=== PATIENT | female | born 1950 | race Caucasian/White ===

== ENCOUNTER → 2016-11-06 | Outpatient (CLI) | payer BC ==
[~2016-11-06] MED LIST: CLARITIN10 MG PO; MICARDIS HCT 121 TA1 PO
== END ==
LOC: MAMMO 09:51
DX: Z12.31 Encounter for screening mammogram for malignant neoplasm of breast (principal)
CPT/HCPCS: G0202

== ENCOUNTER → 2017-03-18 | Outpatient (CLI) | payer BC ==
[2011-11-05 22:11] VITALS: BP 102/66
== END ==
LOC: RAD 03-16 11:21
DX: M25.562 Pain in left knee (principal); S83.242A Other tear of medial meniscus, current injury, left knee, initial encounter; M17.12 Unilateral primary osteoarthritis, left knee; S83.512A Sprain of anterior cruciate ligament of left knee, initial encounter; M25.462 Effusion, left knee; M85.462 Solitary bone cyst, left tibia and fibula

== ENCOUNTER 2017-07-15 08:00 | Outpatient (RCR) | payer MEDICARE, BC ==
[2011-11-05 22:11] VITALS: BP 102/66
== END 2017-07-15 11:22 | disposition home or self-care (01) ==
LOC: PT 08:00
DX: Z47.89 Encounter for other orthopedic aftercare (principal)
CPT/HCPCS: G8978-GP; G8979-GP

== ENCOUNTER → 2017-11-11 | Outpatient (CLI) | payer MEDICARE, MEDICAID ==
[2011-11-05 22:11] VITALS: BP 102/66
== END ==
LOC: MAMMO 08:30
DX: Z12.31 Encounter for screening mammogram for malignant neoplasm of breast (principal)

== ENCOUNTER 2018-02-01 08:00 | Outpatient (RCR) | payer MEDICARE, MEDICAID ==
[2011-11-05 22:11] VITALS: BP 102/66
== END 2018-02-10 | disposition home or self-care (01) ==
LOC: PT
DX: Z47.89 Encounter for other orthopedic aftercare (principal); M25.562 Pain in left knee
CPT/HCPCS: G8978-GP; G8979-GP

== ENCOUNTER 2018-09-29 15:41 | Emergency (ER) | payer MEDICARE, MEDICAID ==
[~2018-09-29] VITALS: Ht 157.5 cm; Wt 80.0 kg
[2018-09-29] MEDS ORDERED: SIMVASTATIN40 M1 PO (15:56)
[2018-09-29] MEDS ORDERED: HYDROCHLOROTHIA1 T15 PO (15:56)
[2018-09-29] MEDS ORDERED: MEDI-FIRST ASP325 MG PO (15:57)
[2018-09-29 16:56] LABS: EOS # 0.3 (0.04-0.40); EOS % 3.8 % (1.0-5.0); HEMATOCRIT 41.7 % (37.0-47.0); HEMOGLOBIN 14.2 g/dL (12.5-16.0); LYMPH# 2.3 (1.50-4.00); MEAN CELL VOLUME 94 fl (78-100); MEAN CORPUSCULAR HEMOGLOBIN 32 pg (27-31); MEAN CORPUSCULAR HGB CONC 34 g/dL (33-37); MEAN PLATELET VOLUME 8.9 fl (7.4-10.4); MONO # 0.8 (0.20-0.80); NEU # 5.4 (1.40-6.50); PLATELET COUNT 471 K/mm3 (130-400); RED BLOOD COUNT 4.44 M/mm3 (4.10-5.30); RED CELL DISTRIBUTION WIDTH 13.1 % (11.5-14.5); WHITE BLOOD COUNT 8.9 K/mm3 (4.8-10.8)
[2018-09-29 17:02] LABS: ALBUMIN 4.9 g/dL (3.5-5.0); CALCIUM 10.1 mg/dL (8.4-10.2); POTASSIUM 3.9 mmol/L (3.6-5.0); TOTAL BILIRUBIN 0.6 mg/dL (0.2-1.3); TOTAL PROTEIN 7.9 g/dL (6.3-8.2)
[2018-09-29 17:04] LABS: PROTHROMBIN TIME 10.2 SECONDS (9.0-12.0)
[2018-09-29 18:42] VITALS: BP 149/80
[2018-09-29 20:35] LABS: URINE APPEARANCE CLEAR; URINE COLOR YELLOW
[2018-09-29 20:37] LABS: URINE BILIRUBIN NEGATIVE (NEGATIVE); URINE BLOOD NEGATIVE (NEGATIVE); URINE GLUCOSE NEGATIVE (NEGATIVE); URINE KETONE NEGATIVE (NEGATIVE); URINE LEUKOCYTE ESTERASE NEGATIVE (NEGATIVE); URINE NITRATE NEGATIVE (NEGATIVE); URINE PROTEIN(semi-quant) NEGATIVE (NEGATIVE); URINE UROBILINOGEN NORMAL (NORMAL); URINE WBC 0-1 /hpf (0-3)
[2018-09-29 20:38] LABS: URINE MUCUS PRESENT (NOT PRESENT)
== END 2018-09-29 18:45 | disposition short-term general hospital (02) ==
LOC: ED 15:41
PROVIDERS: Physician Assistant
DX: I63.9 Cerebral infarction, unspecified (principal); H53.9 Unspecified visual disturbance; I10 Essential (primary) hypertension; E78.5 Hyperlipidemia, unspecified; Z79.899 Other long term (current) drug therapy; Z79.82 Long term (current) use of aspirin

== ENCOUNTER 2018-10-03 18:04 | Emergency (ER) | payer MEDICARE ==
[~2018-10-03] VITALS: Ht 157.5 cm; Wt 80.5 kg
[~2018-10-03 18:04] MED LIST changes: +HYDROCHLOROTHIA1 T15 PO; +MEDI-FIRST ASP325 MG PO; +SIMVASTATIN40 M1 PO
[2018-10-03 19:28] LABS: EOS # 0.3 (0.04-0.40); EOS % 2.7 % (1.0-5.0); HEMATOCRIT 40.9 % (37.0-47.0); HEMOGLOBIN 14.1 g/dL (12.5-16.0); MEAN CELL VOLUME 93 fl (78-100); MEAN CORPUSCULAR HEMOGLOBIN 32 pg (27-31); MEAN CORPUSCULAR HGB CONC 35 g/dL (33-37); MONO # 0.7 (0.20-0.80); NEU # 6.5 (1.40-6.50); PLATELET COUNT 470 K/mm3 (130-400); RED BLOOD COUNT 4.38 M/mm3 (4.10-5.30); RED CELL DISTRIBUTION WIDTH 12.9 % (11.5-14.5); WHITE BLOOD COUNT 9.5 K/mm3 (4.8-10.8)
[2018-10-03] MEDS ORDERED: LIPITOR 40MG TA40 MG PO (19:31)
[2018-10-03] MEDS ORDERED: CHILDREN'S ASPI81 M1 PO (19:31)
[2018-10-03] MEDS ORDERED: CLOPIDOGREL PO (19:31)
[2018-10-03] MEDS ORDERED: XANAX0.25 M1 PO (19:32)
[2018-10-03 19:40] LABS: POTASSIUM 3.6 mmol/L (3.6-5.0)
[2018-10-03 20:30] LABS: ERYTHROCYTE SEDIMENTATION RATE 8 mm/hr (0-30)
[2018-10-03 21:02] VITALS: BP 116/74
== END 2018-10-03 21:02 | disposition home or self-care (01) ==
LOC: ED 18:04
PROVIDERS: Family Medicine
DX: I10 Essential (primary) hypertension (principal); F41.9 Anxiety disorder, unspecified; Z86.73 Personal history of transient ischemic attack (TIA), and cerebral infarction without residual deficits; E78.5 Hyperlipidemia, unspecified; Z79.02 Long term (current) use of antithrombotics/antiplatelets

== ENCOUNTER 2018-10-08 08:50 | Outpatient (RCR) | payer MEDICARE, MEDICAID ==
[~2018-10-08 08:50] MED LIST changes: +CHILDREN'S ASPI81 M1 PO; +CLOPIDOGREL PO; +LIPITOR 40MG TA40 MG PO; +XANAX0.25 M1 PO
== END 2018-10-08 09:30 | disposition home or self-care (01) ==
LOC: OT 08:50
DX: I69.398 Other sequelae of cerebral infarction (principal); H53.9 Unspecified visual disturbance

== ENCOUNTER 2019-04-29 09:58 | Emergency (ER) | payer MEDICARE, MEDICAID ==
[2019-04-29 10:38] LABS: HEMATOCRIT 42.7 % (37.0-47.0); HEMOGLOBIN 14.5 g/dL (12.5-16.0); MEAN CELL VOLUME 94 fl (78-100); MEAN CORPUSCULAR HEMOGLOBIN 32 pg (27-31); MEAN CORPUSCULAR HGB CONC 34 g/dL (33-37); MEAN PLATELET VOLUME 8.6 fl (7.4-10.4); PLATELET COUNT 382 K/mm3 (130-400); RED BLOOD COUNT 4.53 M/mm3 (4.10-5.30); RED CELL DISTRIBUTION WIDTH 12.8 % (11.5-14.5); WHITE BLOOD COUNT 7.2 K/mm3 (4.8-10.8)
[2019-04-29 10:48] LABS: ALBUMIN 4.5 g/dL (3.4-4.8)
[2019-04-29 10:49] LABS: POTASSIUM 4.2 mmol/L (3.5-5.1); SODIUM 139 mmol/L (136-145)
[2019-04-29 10:50] LABS: CALCIUM 9.8 mg/dL (8.3-10.5); LYMPHOCYTE 17 % (20-51); MONOCYTE 12 % (3-10); NEUTROPHILS 60 % (42-75)
[2019-04-29 10:51] LABS: GLUCOSE 101 mg/dL (65-105); TOTAL PROTEIN 6.9 g/dL (6.2-8.1)
[2019-04-29 10:52] LABS: CARBON DIOXIDE 25 mmol/L (23-31)
[2019-04-29 10:53] LABS: TOTAL BILIRUBIN 0.8 mg/dL (0.2-1.2)
[2019-04-29 10:55] LABS: PARTIAL THROMBOPLASTIN TIME 22.6 SECONDS (21.0-32.0); PROTHROMBIN TIME 10.4 SECONDS (9.0-12.0)
[2019-04-29 10:56] LABS: AST-SGOT 27 U/L (5-34)
[2019-04-29 10:58] LABS: ALT/SGPT 28 U/L (0-55)
[2019-04-29 11:05] LABS: TROPONIN-I < 0.03 ng/mL (<0.030)
[2019-04-29] MEDS ORDERED: ACTEMRA162 MG/0.9 SC (11:18)
[2019-04-29 13:32] LABS: URINE APPEARANCE CLEAR; URINE BILIRUBIN NEGATIVE (NEGATIVE); URINE BLOOD NEGATIVE (NEGATIVE); URINE COLOR YELLOW; URINE GLUCOSE NEGATIVE (NEGATIVE); URINE KETONE NEGATIVE (NEGATIVE); URINE LEUKOCYTE ESTERASE NEGATIVE (NEGATIVE); URINE NITRATE NEGATIVE (NEGATIVE); URINE PROTEIN(semi-quant) NEGATIVE (NEGATIVE); URINE UROBILINOGEN NORMAL (NORMAL); URINE WBC 0-1 /hpf (0-3)
[2019-04-29 14:32] VITALS: BP 134/82
== END 2019-04-29 14:32 | disposition home or self-care (01) ==
LOC: ED 09:58
PROVIDERS: Nurse Practitioner
DX: R51 Headache (principal); I25.10 Atherosclerotic heart disease of native coronary artery without angina pectoris; I10 Essential (primary) hypertension; K21.9 Gastro-esophageal reflux disease without esophagitis; Z95.9 Presence of cardiac and vascular implant and graft, unspecified; Z86.79 Personal history of other diseases of the circulatory system; Z79.02 Long term (current) use of antithrombotics/antiplatelets

== ENCOUNTER → 2019-10-14 | Outpatient (CLI) | payer MEDICARE, MEDICAID ==
[~2019-10-14] MED LIST changes: +ACTEMRA162 MG/0.9 SC
== END ==
LOC: RAD 15:36
DX: M19.042 Primary osteoarthritis, left hand (principal)

== ENCOUNTER → 2020-05-17 | Outpatient (CLI) | payer MEDICARE, MEDICAID | LOC: MAMMO 08:20 | DX: Z12.31 Encounter for screening mammogram for malignant neoplasm of breast (principal) ==

== ENCOUNTER → 2021-05-30 | Outpatient (CLI) | payer MEDICARE ==
[~2021-05-30] MED LIST changes: +ROSUVASTATIN CA20 MG PO
== END ==
LOC: MAMMO 08:25
DX: Z12.31 Encounter for screening mammogram for malignant neoplasm of breast (principal); Z78.0 Asymptomatic menopausal state

== ENCOUNTER → 2021-05-30 | Outpatient (CLI) | payer MEDICARE, MEDICAID | LOC: MAMMO 08:24 → RAD 08:24 → MAMMO 08:30 | DX: M85.80 Other specified disorders of bone density and structure, unspecified site (principal); Z78.0 Asymptomatic menopausal state ==

== ENCOUNTER 2021-07-12 14:01 | Emergency (ER) | payer MEDICARE ==
[~2021-07-12] VITALS: Ht 157.5 cm; Wt 87.3 kg
[~2021-07-12 14:01] MED LIST changes: -ROSUVASTATIN CA20 MG PO
[2021-07-12] MEDS ORDERED: ROSUVASTATIN CA20 MG PO (14:32)
[2021-07-12 15:35] LABS: BASO # 0.01 (0.02-0.10); EOS # 0.34 (0.04-0.40); EOS % 3.6 % (1.0-5.0); HEMATOCRIT 37.2 % (37.0-47.0); HEMOGLOBIN 12.4 g/dL (12.5-16.0); LYMPH# 1.69 (1.50-4.00); MEAN CELL VOLUME 97 fl (78-100); MEAN CORPUSCULAR HEMOGLOBIN 32 pg (27-31); MEAN CORPUSCULAR HGB CONC 33 g/dL (33-37); MEAN PLATELET VOLUME 8.6 fl (7.4-10.4); MONO # 0.87 (0.20-0.80); NEU # 6.43 (1.40-6.50); PLATELET COUNT 359 K/mm3 (130-400); RED BLOOD COUNT 3.84 M/mm3 (4.10-5.30); RED CELL DISTRIBUTION WIDTH 13.1 % (11.5-14.5); WHITE BLOOD COUNT 9.4 K/mm3 (4.8-10.8)
[2021-07-12 15:38] LABS: ALBUMIN 3.8 g/dL (3.4-4.8); POTASSIUM 3.9 mmol/L (3.5-5.1)
[2021-07-12 15:39] LABS: CALCIUM 9.5 mg/dL (8.3-10.5)
[2021-07-12 15:40] LABS: TOTAL PROTEIN 6.5 g/dL (6.2-8.1)
[2021-07-12 15:42] LABS: TOTAL BILIRUBIN 0.7 mg/dL (0.2-1.2)
[2021-07-12 15:51] LABS: PH-URINE 5.5 (5.0 - 8.0); URINE APPEARANCE CLEAR; URINE BILIRUBIN NEGATIVE (NEGATIVE); URINE BLOOD NEGATIVE (NEGATIVE); URINE COLOR YELLOW; URINE GLUCOSE NEGATIVE (NEGATIVE); URINE KETONE NEGATIVE (NEGATIVE); URINE NITRATE NEGATIVE (NEGATIVE); URINE PROTEIN(semi-quant) NEGATIVE (NEGATIVE); URINE UROBILINOGEN NORMAL (NORMAL)
[2021-07-12 15:52] LABS: URINE LEUKOCYTE ESTERASE TRACE (NEGATIVE)
[2021-07-12 17:45] VITALS: BP 155/74
== END 2021-07-12 17:45 | disposition home or self-care (01) ==
LOC: ED 14:01
PROVIDERS: Nurse Practitioner
DX: R10.11 Right upper quadrant pain (principal); R10.31 Right lower quadrant pain; I10 Essential (primary) hypertension; F41.9 Anxiety disorder, unspecified; Z86.73 Personal history of transient ischemic attack (TIA), and cerebral infarction without residual deficits; Z79.02 Long term (current) use of antithrombotics/antiplatelets; Z79.899 Other long term (current) drug therapy
CPT/HCPCS: Q9967

== ENCOUNTER → 2023-08-07 | Outpatient (CLI) | payer MEDICARE ==
[~2023-08-07] MED LIST changes: +ROSUVASTATIN CA20 MG PO
== END ==
LOC: MAMMO 08:30
DX: Z12.31 Encounter for screening mammogram for malignant neoplasm of breast (principal)

== ENCOUNTER → 2024-08-10 | Outpatient (CLI) | payer MEDICAID | LOC: MAMMO 08:29 | DX: Z12.31 Encounter for screening mammogram for malignant neoplasm of breast (principal) ==